=== PATIENT | female | born 1995 | race Caucasian/White ===

== ENCOUNTER 2019-06-14 16:22 | Emergency (ER) | payer OTHER ==
[~2019-06-14] VITALS: Ht 160 cm; Wt 113.0 kg
[2019-06-14 16:24] VITALS: BP 118/78; PULSE 100; RESP 18; Ht 160 cm; Wt 113.0 kg
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
[2019-06-14] MEDS ORDERED: HYDROCODONE/APAP (10/325) TAB PO ONE (17:00)
[2019-06-14] MEDS ORDERED: ACET325T33 PO (18:19)
== END 2019-06-14 18:29 | disposition home or self-care (01) ==
LOC: E/R 16:22 → FTE 18:29
DX: S00.11XA Contusion of right eyelid and periocular area, initial encounter (principal); F07.81 Postconcussional syndrome; G44.309 Post-traumatic headache, unspecified, not intractable; V49.40XA Driver injured in collision with unspecified motor vehicles in traffic accident, initial encounter
CPT/HCPCS: 70450; 70486; 81025; Z7502; Z7610